=== PATIENT | female | born 1955 | race Caucasian/White ===

== ENCOUNTER 2017-04-17 17:12 | Emergency (ER) | payer OTHER | END 2017-04-17 21:16 | disposition home or self-care (01) | LOC: FER 17:12 | DX: J18.9 Pneumonia, unspecified organism (principal); J45.909 Unspecified asthma, uncomplicated; J44.9 Chronic obstructive pulmonary disease, unspecified; Z79.51 Long term (current) use of inhaled steroids; Z79.899 Other long term (current) drug therapy | CPT/HCPCS: 71020; 87070; 87077; 87205; 94640; 94760 ==